=== PATIENT | female | born 1980 | race Caucasian/White ===

== ENCOUNTER 2017-04-30 14:26 | Emergency (ER) | payer MEDICAID ==
[2017-04-30 15:25] LABS: UA SPECIFIC GRAVITY 1.025 (1.005-1.035); microscopic required? YES; urine erythrocyte 1+ (NEGATIVE)
[2017-04-30 15:36] VITALS: BP 112/73
== END 2017-04-30 15:36 | disposition home or self-care (01) ==
LOC: ED 14:26
PROVIDERS: Emergency Medicine
DX: N39.0 Urinary tract infection, site not specified (principal); R03.0 Elevated blood-pressure reading, without diagnosis of hypertension
CPT/HCPCS: J7030

== ENCOUNTER 2017-10-16 10:39 | Emergency (ER) | payer MEDICAID ==
[~2017-10-16] VITALS: Ht 152.4 cm; Wt 82.1 kg
[2017-10-16 10:51] VITALS: Ht 152.4 cm; Wt 82.1 kg
[2017-10-16 12:14] VITALS: BP 149/111
== END 2017-10-16 12:10 | disposition home or self-care (01) ==
LOC: ED 10:39
DX: M54.5 Low back pain (principal)
CPT/HCPCS: J1885

== ENCOUNTER 2018-01-28 15:30 | Emergency (ER) | payer MEDICAID ==
[~2018-01-28] VITALS: Ht 154.9 cm; Wt 88.9 kg
[2018-01-28 15:37] VITALS: Ht 154.9 cm; Wt 88.9 kg
[2018-01-28 19:37] VITALS: BP 142/85
== END 2018-01-28 19:37 | disposition home or self-care (01) ==
LOC: ED 15:30
DX: G89.29 Other chronic pain (principal); M54.9 Dorsalgia, unspecified; E78.00 Pure hypercholesterolemia, unspecified
CPT/HCPCS: J1885

== ENCOUNTER 2018-02-09 15:31 | Emergency (ER) | payer MEDICAID ==
[~2018-02-09] VITALS: Ht 157.5 cm; Wt 127.0 kg
[2018-02-09 15:49] VITALS: Ht 157.5 cm; Wt 127.0 kg
[2018-02-09 18:04] VITALS: BP 138/80
== END 2018-02-09 18:04 | disposition home or self-care (01) ==
LOC: ED 15:31
DX: G89.29 Other chronic pain (principal); M54.5 Low back pain; M51.27 Other intervertebral disc displacement, lumbosacral region; E78.00 Pure hypercholesterolemia, unspecified; M81.0 Age-related osteoporosis without current pathological fracture
CPT/HCPCS: J1885

== ENCOUNTER 2018-08-29 13:52 | Inpatient (IN) | payer MEDICAID ==
[~2018-08-29] VITALS: Ht 154.9 cm; Wt 79.8 kg
[2018-08-29 14:00] VITALS: Ht 154.9 cm; Wt 79.8 kg
[2018-08-29 15:25] LABS: BASOPHIL % 1.2 % (0-2); RED CELL DISTRIBUTION WIDTH 12.9 % (11.5-14.5)
[2018-08-29 15:27] LABS: PLATELET COUNT 427 x10^3mcL (130-400)
[2018-08-29 15:27] LABS: UA SPECIFIC GRAVITY <=1.005 (1.005-1.035); microscopic required? YES; urine erythrocyte TRACE (NEGATIVE)
[2018-08-29 15:32] LABS: CALCIUM 9.2 mg/dL (8.5-10.1); CARBON DIOXIDE 27.1 mmol/L (21-32); CHLORIDE SERUM 102 mmol/L (98-107); CREATININE SERUM 0.7 mg/dL (0.6-1.0); GFR1 > 60 mL/min; GLUCOSE SERUM 126 mg/dL (74-106); POTASSIUM SERUM 3.5 mmol/L (3.5-5.1); SODIUM SERUM 139 mmol/L (136-145)
[2018-08-29 15:38] LABS: ALBUMIN 4.3 g/dL (3.4-5.0); ALKALINE PHOSPHATASE 69 U/L (46-116); ALT/SGPT 14 U/L (14-59); AST/SGOT 15 U/L (15-37); BILIRUBIN TOTAL 0.26 mg/dL (0.20-1.00)
[2018-08-29 15:39] LABS: TOTAL PROTEIN, SERUM 8.5 g/dL (6.4-8.2)
[2018-08-29] MEDS ORDERED: GLIPIZIDE5 M2 PO (16:05)
[2018-08-29] MEDS ORDERED: ZESTRIL5 MG PO (16:06)
[2018-08-29] MEDS ORDERED: METFORMIN HYDR500 M1 PO (16:06)
[2018-08-29 16:27] LABS: AMPHETAMINE QUAL UR NONE DETECTED (See below)
[2018-08-29 16:27] LABS: MAGNESIUM 1.8 mg/dL (1.8-2.4); PHOSPHOROUS 3.6 mg/dL (2.5-4.9)
[2018-08-29 16:28] LABS: CHOLESTEROL/HDL RATIO 4.5
[2018-08-29 17:04] LABS: T3 TOTAL 1.15 ng/mL
[2018-08-29 17:05] LABS: FREE THYROXINE INDEX 3.4 ug/dL (1.4-4.5); T4(THYROXINE) 10.2 ug/dL (4.7-13.3)
[2018-08-29 17:32] VITALS: BP 120/86
[2018-08-29 20:59] VITALS: BP 113/73
[2018-08-30 05:28] VITALS: BP 124/72
[2018-08-30 06:41] LABS: BASOPHIL % 0.4 % (0-2); CALCIUM 8.6 mg/dL (8.5-10.1); CARBON DIOXIDE 27.2 mmol/L (21-32); CHLORIDE SERUM 103 mmol/L (98-107); CREATININE SERUM 0.7 mg/dL (0.6-1.0); GFR1 > 60 mL/min; GLUCOSE SERUM 109 mg/dL (74-106); POTASSIUM SERUM 3.9 mmol/L (3.5-5.1); RED CELL DISTRIBUTION WIDTH 12.6 % (11.5-14.5); SODIUM SERUM 139 mmol/L (136-145)
[2018-08-30 06:52] LABS: PLATELET COUNT 402 x10^3mcL (130-400)
[2018-08-30 09:00] VITALS: BP 126/79
[2018-08-30] MEDS ORDERED: METFORMIN HCL850 MG PO (09:22)
[2018-08-30 12:29] VITALS: BP 126/79
== END 2018-08-30 13:39 | disposition home or self-care (01) | DRG 420 ==
LOC: ED 13:52 → DU 15:57
PROVIDERS: Emergency Medicine; ADMIT General Practice
DX: E11.649 Type 2 diabetes mellitus with hypoglycemia without coma (principal); D68.69 Other thrombophilia; T38.3X5A Adverse effect of insulin and oral hypoglycemic [antidiabetic] drugs, initial encounter; D72.829 Elevated white blood cell count, unspecified; E78.5 Hyperlipidemia, unspecified; E66.9 Obesity, unspecified; Z68.35 Body mass index [BMI] 35.0-35.9, adult; Z79.84 Long term (current) use of oral hypoglycemic drugs; Y92.010 Kitchen of single-family (private) house as the place of occurrence of the external cause
CPT/HCPCS: 82962; 84439; 90658; Q0092

== ENCOUNTER 2020-05-19 15:16 | Emergency (ER) | payer OTHER, MEDICAID ==
[~2020-05-19] VITALS: Ht 154.9 cm; Wt 81.6 kg
[~2020-05-19 15:16] MED LIST: GLIPIZIDE5 M2 PO; METFORMIN HCL850 MG PO; METFORMIN HYDR500 M1 PO; ZESTRIL5 MG PO
[2020-05-19 15:18] VITALS: BP 161/106; Ht 154.9 cm; Wt 81.6 kg
== END 2020-05-19 18:41 | disposition home or self-care (01) ==
LOC: ED 15:16
DX: R05 Cough (principal); J02.9 Acute pharyngitis, unspecified; M79.10 Myalgia, unspecified site; R51.9 Headache, unspecified; R07.0 Pain in throat; E11.9 Type 2 diabetes mellitus without complications; M81.0 Age-related osteoporosis without current pathological fracture; E78.00 Pure hypercholesterolemia, unspecified; G89.29 Other chronic pain; Z20.828 Contact with and (suspected) exposure to other viral communicable diseases
CPT/HCPCS: U0003